=== PATIENT | female | born 1980 | race Two or more races ===

== ENCOUNTER 2022-11-06 14:30 | Emergency (ER) | payer OTHER, MEDICAID ==
[~2022-11-06] VITALS: Ht 160 cm; Wt 81.0 kg
[2022-11-06] MEDS ORDERED: KETOROLAC TROMETH 60MG/2ML VIAL IM ONE (15:45)
[2022-11-06 23:28] VITALS: BP 100/69
== END 2022-11-06 23:42 | disposition home or self-care (01) ==
LOC: EDBD 14:30 → ER 14:30
DX: M79.10 Myalgia, unspecified site (principal); M54.2 Cervicalgia; M25.562 Pain in left knee; V43.52XA Car driver injured in collision with other type car in traffic accident, initial encounter; Y93.89 Activity, other specified; Y92.410 Unspecified street and highway as the place of occurrence of the external cause; Y99.8 Other external cause status
CPT/HCPCS: 71120; 72040; 73562; 96372; 99284; J1885